=== PATIENT | female | born 1980 | race Caucasian/White ===

== ENCOUNTER 2020-12-02 21:52 | Emergency (ER) | payer SELFPAY ==
[2020-12-02 21:57] VITALS: BP 133/112; PULSE 84; RESP 18; TEMP 36; O2SAT 100
--- NOTE | 2020-12-02 22:26 | PC.NURSE ---
Patient left her urine with barge master then went outside-unable to find when this RN went out to scan for UA
--- NOTE | 2020-12-02 23:00 | PC.NURSE ---
Unable to locate patient or her friend in waiting room or outside
== END 2020-12-03 01:05 | disposition left against medical advice (07) ==
LOC: ANHED 12-03 01:04
DX: R10.9 Unspecified abdominal pain (principal)
CPT/HCPCS: 99199